=== PATIENT | female | born 1950 | race Caucasian/White ===

== ENCOUNTER → 2018-05-06 | Outpatient (CLI) | payer MEDICARE | END | disposition home or self-care (01) | LOC: RAH 15:33 | PROVIDERS: ATTEND Internal Medicine | DX: M48.07 Spinal stenosis, lumbosacral region (principal); M47.814 Spondylosis without myelopathy or radiculopathy, thoracic region; R07.81 Pleurodynia; M25.78 Osteophyte, vertebrae; W19.XXXS Unspecified fall, sequela | CPT/HCPCS: 71100; 72070; 72100 ==

== ENCOUNTER → 2019-02-13 | Outpatient (CLI) | payer MEDICARE | END | disposition home or self-care (01) | LOC: RAH 08:29 | PROVIDERS: ATTEND Internal Medicine | DX: R94.31 Abnormal electrocardiogram [ECG] [EKG] (principal) | CPT/HCPCS: 93306 ==

== ENCOUNTER → 2019-02-28 | Outpatient (CLI) | payer MEDICARE ==
[~2019-02-28] MED LIST: REGADENOSON 0.4 MG/5 ML PF SYG IVP SCH
== END | disposition home or self-care (01) ==
LOC: RAH 08:57
PROVIDERS: ATTEND Internal Medicine
DX: R94.31 Abnormal electrocardiogram [ECG] [EKG] (principal); I10 Essential (primary) hypertension
CPT/HCPCS: 78452; 93017; 96374; A9500 ×2; J2785

== ENCOUNTER → 2019-06-19 | Outpatient (CLI) | payer MEDICARE | END | disposition home or self-care (01) | LOC: RAH 10:38 | PROVIDERS: ATTEND Internal Medicine Gastroenterology | DX: R14.2 Eructation (principal) | CPT/HCPCS: 78264; A9541 ==

== ENCOUNTER → 2022-02-15 | Outpatient (CLI) | payer MEDICARE | END | disposition home or self-care (01) | LOC: RAH 10:55 | PROVIDERS: ATTEND Internal Medicine | DX: R07.89 Other chest pain (principal); M47.815 Spondylosis without myelopathy or radiculopathy, thoracolumbar region | CPT/HCPCS: 71046; 71100 ==

== ENCOUNTER → 2022-03-01 | Outpatient (CLI) | payer MEDICARE | END | disposition home or self-care (01) | LOC: RAH 12:49 | PROVIDERS: ATTEND Internal Medicine | DX: N64.4 Mastodynia (principal) | CPT/HCPCS: 76641 ==

== ENCOUNTER → 2022-12-13 | Outpatient (CLI) | payer MEDICARE | END | disposition home or self-care (01) | LOC: RAH 13:33 | PROVIDERS: ATTEND Internal Medicine | DX: R22.32 Localized swelling, mass and lump, left upper limb (principal) | CPT/HCPCS: 76882 ==

== ENCOUNTER 2023-02-13 10:52 | Emergency (ER) | payer MEDICARE ==
[~2023-02-13] VITALS: Ht 162.6 cm; Wt 80.7 kg
[2023-02-13 10:58] VITALS: BP 154/74; PULSE 76; RESP 16; O2SAT 98
[2023-02-13] MEDS ORDERED: LIDOCAINE HCL 1% 20 ML VIAL ONE (11:47)
[2023-02-13] MEDS ORDERED: LIDOCAINE HCL 1% 20 ML VIAL INJ SCH (12:30)
[2023-02-13] MEDS ORDERED: CEPH500B PO (12:38)
[2023-02-13] MEDS ORDERED: DIPH,PERTUSS(ACELL),TET VAC/PF 0.5 ML VIAL IM ONE (13:00)
== END 2023-02-13 12:55 | disposition home or self-care (01) ==
LOC: EDH 10:52
DX: S91.115A Laceration without foreign body of left lesser toe(s) without damage to nail, initial encounter (principal); I10 Essential (primary) hypertension; E11.9 Type 2 diabetes mellitus without complications; E03.9 Hypothyroidism, unspecified; E78.00 Pure hypercholesterolemia, unspecified; Z98.890 Other specified postprocedural states; W26.8XXA Contact with other sharp object(s), not elsewhere classified, initial encounter; Y93.89 Activity, other specified; Y92.512 Supermarket, store or market as the place of occurrence of the external cause; Y99.8 Other external cause status
CPT/HCPCS: 12002; 73630; 90471; 90715

== ENCOUNTER → 2023-03-12 | Outpatient (CLI) | payer MEDICARE ==
[~2023-03-12] MED LIST changes: +CEPH500B PO; -REGADENOSON 0.4 MG/5 ML PF SYG IVP SCH
== END | disposition home or self-care (01) ==
LOC: RAH 11:32
PROVIDERS: ATTEND Nurse Practitioner Family
DX: M19.042 Primary osteoarthritis, left hand (principal); M79.642 Pain in left hand; M25.532 Pain in left wrist; M79.89 Other specified soft tissue disorders; M19.032 Primary osteoarthritis, left wrist
CPT/HCPCS: 73110; 73130

== ENCOUNTER → 2024-10-30 | Outpatient (CLI) | payer MEDICARE ==
--- NOTE | 2024-10-30 14:40 | HMCIMG ---
EXAM: Ultrasound bilateral lower extremity arteries. History: Type 2 diabetes mellitus with diabetic peripheral angiopathy Technique: Static grayscale and Doppler images were obtained Right side: [employer] systolic: 174 cm/s Waveform: Triphasic SFA proximal systolic: 134 cm/s Waveform: Triphasic SFA mid systolic: 130 cm/s Waveform: Triphasic SFA distal systolic: 87 cm/s Waveform triphasic Popliteal artery systolic: 81/98 cm/s Waveform triphasic Posterior tibial artery systolic 51 cm/s Waveform biphasic Dorsalis pedis artery systolic 76 cm/s Waveform biphasic Anterior tibial artery: 56 cm/s. Waveform: Biphasic Plaque formation: Multilevel Left side: [employer]TA[employer]IVER systolic: 139 cm/s Waveform: Triphasic SFA proximal systolic: 139 cm/s Waveform: Triphasic SFA mid systolic: 109 cm/s Waveform: Triphasic SFA distal systolic: 147 cm/s Waveform triphasic Popliteal artery systolic: 121/111 cm/s Waveform triphasic Posterior tibial artery systolic 77 cm/s Waveform biphasic Dorsalis pedis artery systolic 72 cm/s Waveform biphasic Anterior tibial artery: 92 cm/s. Waveform: Biphasic Plaque formation: Multilevel Impression: No hemodynamically significant stenosis. Multilevel bilateral atherosclerosis. /Frannie
== END | disposition home or self-care (01) ==
LOC: RAH 12:36
PROVIDERS: ATTEND Internal Medicine
DX: I70.203 Unspecified atherosclerosis of native arteries of extremities, bilateral legs (principal); E11.51 Type 2 diabetes mellitus with diabetic peripheral angiopathy without gangrene
CPT/HCPCS: 93925

== ENCOUNTER → 2025-01-12 | Outpatient (CLI) | payer OTHER ==
--- NOTE | 2025-01-13 11:38 | HMCIMG ---
EXAM: CT Cardiac calcium scoring. CLINICAL HISTORY: Screening. TECHNIQUE: Thin collimated axial CT cardiac images were obtained. A CT scan is done according to ALARA (As Low As Reasonably Achievable). CONTRAST: None. COMPARISON: None provided. FINDINGS: Calcium Score: VESSEL Number of lesions Volume mm3 Equi. Mass/mg Calcium score LM 1 26.4 - 39.7 LAD 3 380.9 - 522.4 LCX 0 0.0 - 0.0 RCA 1 88.5 - 127.1 Total 5 495.9 - 689.2 IMPRESSION: The total calcium score is 689.2. 90th percentile. Prominent ascending aorta measuring 4.1 cm. /Smilax
== END | disposition home or self-care (01) ==
LOC: RAH 13:59
PROVIDERS: ATTEND Internal Medicine Cardiovascular Disease
DX: Z13.6 Encounter for screening for cardiovascular disorders (principal)
CPT/HCPCS: 75571

== ENCOUNTER → 2025-04-06 | Outpatient (CLI) | payer MEDICARE, OTHER ==
[2025-04-06] MEDS: REGADENOSON 0.4 MG/5 ML PF SYG IVP ONE (13:12)
--- NOTE | 2025-04-06 15:25 | HMCSR ---
APPROVED REPORT Height: 5 ft 3in Weight: 143 lbs TEST INDICATIONS Abnormal ECG The imaging protocol used to acquire images was Rest Tc-99m/stress Tc-99m 1 day Consent: The procedure was explained and understood by the patient. Informerd consent was witnessed by Ravi Weir RN First, low dose rest was performed then high dose stress. RESTING DATA: The resting ekg shows: NSR Rest SPECT myocardial perfusion imaging was performed in supine position minutes following the intravenous injection of 10.2 mCi of Tc-99 Sestamibi. Time of rest injection: 11:00: Date: 04/06/2025 PHARMACOLOGIC STRESS: Pharmacologic stress test was performed by injecting regadenoson 0.4 mg IV push followed by the intravenous injection of 29 mCi of Tc-99 Sestamibi. Time of stress injection: 12:44: Date: 04/06/2025 Heart Rate at time of stress injection: 62 bpm. Gated Stress SPECT was performed 60 minutes after stress injection. The images were gated to evaluate regional wall motion and calculate left ventricular ejection fraction. STRESS DETAILS Reason for Termination: Infusion complete Stress Symptoms: Flushing Max HR Achieved: 88 bpm % of APMHR Achieved: 70 Max Blood Pressure: 141/59 mmHg Stress ECG: NSR LEFT VENTRICLE Size: The left ventricular size is normal. Systolic Function:The left ventricular systolic function is hyperdynamic. Wall Motion: No regional wall motion abnormalities noted. The left ventricular ejection fraction was calculated to be 98%.TID = . LV PERFUSION The stress images show normal perfusion, with early global isotope washout. No reversible ischemic defects. Conclusion The left ventricular size is normal. The left ventricular systolic function is hyperdynamic. No regional wall motion abnormalities noted. The left ventricular ejection fraction was calculated to be 98%. The stress images show normal perfusion, with early global isotope washout. No reversible ischemic defects.
== END | disposition home or self-care (01) ==
LOC: RAH 10:36
PROVIDERS: ATTEND Internal Medicine Cardiovascular Disease
DX: R94.01 Abnormal electroencephalogram [EEG] (principal); R23.2 Flushing; R94.31 Abnormal electrocardiogram [ECG] [EKG]
CPT/HCPCS: 78452; 93017; J2785; A9500 ×2